=== PATIENT | male | born 1945 | race Caucasian/White ===

== ENCOUNTER 2021-01-07 04:44 | Day surgery (SDC) | payer OTHER, MEDICARE ==
[2021-01-06 13:31] VITALS: BMI 33.3
[2021-01-07 12:07] VITALS: TEMP 98
[2021-01-07 13:08] VITALS: BP 150/75; PULSE 60
== END 2021-01-07 13:08 | disposition home or self-care (01) ==
LOC: JASU-ENDO 04:44
PROVIDERS: ATTEND Internal Medicine Gastroenterology
PROC: 0DBH8ZX Excision of Cecum, Via Natural or Artificial Opening Endoscopic, Diagnostic (ICD-10-PCS; principal; 2021-01-07 11:30)
DX: Z51.11 Encounter for antineoplastic chemotherapy (principal); Z86.010 Personal history of colon polyps; D12.0 Benign neoplasm of cecum; K57.30 Diverticulosis of large intestine without perforation or abscess without bleeding
CPT/HCPCS: 88305-TC

== ENCOUNTER 2024-01-04 04:45 | Day surgery (SDC) | payer OTHER, MEDICARE ==
[2023-12-29 09:13] VITALS: BMI 25.5
[2024-01-04 09:33] VITALS: TEMP 97.5
[2024-01-04 15:12] VITALS: RESP 18
[2024-01-04 15:14] VITALS: BP 131/71; PULSE 73
== END 2024-01-04 09:55 | disposition home or self-care (01) ==
LOC: JASU-ENDO 04:45
PROVIDERS: ATTEND Internal Medicine Gastroenterology
PROC: 0DBK8ZX Excision of Ascending Colon, Via Natural or Artificial Opening Endoscopic, Diagnostic (ICD-10-PCS; principal; 2024-01-04 09:30)
DX: Z12.11 Encounter for screening for malignant neoplasm of colon (principal); D12.2 Benign neoplasm of ascending colon; K57.30 Diverticulosis of large intestine without perforation or abscess without bleeding; K64.4 Residual hemorrhoidal skin tags; Z86.010 Personal history of colon polyps
CPT/HCPCS: 88305-TC